=== PATIENT | female | born 1970 | race African-American/Black ===

== ENCOUNTER 2017-02-15 11:54 | Emergency (ER) | payer SELFPAY ==
[~2017-02-15] VITALS: Ht 160 cm; Wt 76.4 kg
[2017-02-15 11:55] VITALS: BP 134/73; PULSE 104; RESP 20; TEMP 98.5; O2SAT 98
--- NOTE | 2017-02-15 13:21 | PD ---
HPI Chief Complaint: Skin Problem Time Seen by Provider: 13:13 Travel History International Travel<30 days: No Contact w/Intl Traveler<30days: No Traveled to known affect area: No History of Present Illness HPI 47 year-old female presents to the emergency room for evaluation of a painful lesion to her left scalp that started about 4 days ago. States it started off as a small pimple and has progressed significantly. Reports significant pain that radiates into the rest of her head. Pain is worsened when she touches it. She has been applying triple antibiotic ointment and ice without any relief in symptoms. Denies fever, chills, nausea, vomiting. Denies chronic medical conditions or daily medications. PFSH Social History Tobacco Use: No Allergies-Medications (Allergen,Severity, Reaction): Coded Allergies: No Known Allergies (Unverified , 02/15/17) Reported Meds & Prescriptions Reported Meds & Active Scripts Active Bactrim DS (Sulfamethoxazole-Trimethoprim) 800-160 Mg Tab 1 Tab PO BID Review of Systems Except as stated in HPI: all other systems reviewed are Neg Physical Exam Narrative GENERAL: Well-nourished, well-developed female in no acute distress. Afebrile. Ambulatory. SKIN: Focused skin assessment warm/dry. There is an indurated area in the left parietal scalp which measures about 2 cm in diameter. It is fluctuant with pointing but no drainage. There is a zone of inflammation around it but no lymphangitis. HEAD: Normocephalic. EYES: No scleral icterus. No injection or drainage. NECK: Supple, trachea midline. No JVD or lymphadenopathy. CARDIOVASCULAR: Regular rate and rhythm without murmurs, gallops, or rubs. RESPIRATORY: Breath sounds equal bilaterally. No accessory muscle use. PSYCHIATRIC: No delusional thought processes. No hallucinations. Data Data Last Documented VS Vital Signs Date Time Temp Pulse Resp B/P (MAP) Pulse Ox O2 Delivery O2 Flow Rate FiO2 02/15/17 11:55 98.5 104 20 134/73 (93) 98 Room Air Orders Orders Lidocai-Epi 1%-1:100,000 Inj (Xylocaine- (02/15/17 13:30) Ed Discharge Order (02/15/17 14:15) Ketorolac Inj (Toradol Inj) (02/15/17 14:30) MDM Medical Decision Making Medical Screen Exam Complete: Yes Emergency Medical Condition: Yes Medical Record Reviewed: Yes Differential Diagnosis Shingles, abscess, folliculitis, ingrown hair Narrative Course 47 year-old female presents to the emergency room for evaluation of a painful lesion to her left parietal scalp that started 4 days ago. Physical exam reveals small abscess to the left parietal scalp that is extremely tender to palpation with pointing but without drainage. No lymphangitis. Vital signs stable. Abscess was drained, see procedure note for details. Patient discharged with Bactrim and told to follow-up with the PCP or return for worsening symptoms. She understands and agrees to plan. Procedures Procedure Narrative INCISION AND DRAINAGE OF ABSCESS: The area was prepped and was sterilely draped. A subcutaneous wheal of 1% lidocaine with epinephrine with a total number 2 mL was used to anesthetize the area properly. A number 11 scalpel was used to make a1 cm incision across the area of the abscess. The abscess was drained, complex loculations were broken down, and irrigated with normal saline. Cultures were obtained. Sterile dressing applied. Diagnosis Primary Impression: Scalp abscess Referrals: Primary Care Physician Additional Instructions: Rest and drink plenty of fluids. Take Bactrim as directed, until gone. Follow up with a primary care physician. Return to emergency room for worsening symptoms, as discussed. Med/Other Pt SpecificInfo: Prescription(s) given Scripts Sulfamethoxazole-Trimethoprim (Bactrim DS) 800-160 Mg Tab 1 TAB PO BID for Infection, #20 TAB 0 Refills Prov: China Zuniga DO 02/15/17 Disposition: 01 DISCHARGE HOME Condition: Stable Florinda Gomez Feb 15, 2017 13:21
[2017-02-15] MEDS ORDERED: LIDOCAINE 1%/EPINEPHrine 1:100,000 SOLN 20 ML VIAL INFIL ONE (13:30)
[2017-02-15] MEDS ORDERED: BACT800T5 PO (14:19)
[2017-02-15] MEDS ORDERED: KETOROLAC TROMETHAMINE 60 MG/2 ML (IM) VIAL IM ONE (14:30)
== END 2017-02-15 15:18 | disposition home or self-care (01) ==
LOC: NEPK 11:54
DX: L02.811 Cutaneous abscess of head [any part, except face] (principal)
CPT/HCPCS: 10060; 96372; 99283; J1885